=== PATIENT | male | born 1995 | race Hispanic/Latino ===

== ENCOUNTER 2019-07-16 08:33 | Emergency (ER) | payer OTHER, SELFPAY ==
[2019-07-16] MEDS ORDERED: Famotidine 20 MG TAB ONE (09:39)
[2019-07-16] MEDS ORDERED: Mag-Al 1200 mg/1200 mg/30 ML UDCUP ONE (09:39)
[2019-07-16] MEDS ORDERED: Ondansetron ODT 4 MG TAB ONE (09:39)
[2019-07-16] MEDS ORDERED: Lidocaine Viscous Sol 2% 15 ml UD Cup ONE (09:40)
== END 2019-07-16 09:56 | disposition home or self-care (01) ==
LOC: ERS 08:33
DX: K21.9 Gastro-esophageal reflux disease without esophagitis (principal); F17.210 Nicotine dependence, cigarettes, uncomplicated
CPT/HCPCS: 99283; Q0162

== ENCOUNTER 2020-03-03 07:23 | Emergency (ER) | payer SELFPAY ==
[2020-03-03] MEDS ORDERED: predniSONE 20 MG TAB ONE (07:56)
== END 2020-03-03 08:07 | disposition home or self-care (01) ==
LOC: ERS 07:23
DX: J02.0 Streptococcal pharyngitis (principal); Z87.891 Personal history of nicotine dependence
CPT/HCPCS: 99283; J7512

== ENCOUNTER 2020-03-04 08:43 | Emergency (ER) | payer SELFPAY ==
[2020-03-04 09:09] LABS: #Basophils 0.1 thou/uL (0.0-0.2); #Lymphocytes 2.8 thou/uL (1.20-3.40); #Monocytes 0.9 thou/uL (0.11-0.59); #Neutrophils 9.3 thou/uL (1.40-6.50); %Basophils 0.5 % (0.0-1.0); %Eosinophils 0.2 % (0.0-10.0); %Lymphocytes 21.2 % (21.0-51.0); %Monocytes 7.2 % (0.0-10.0); %Neutrophils 70.9 % (42.0-75.0); Hemoglobin 16.4 g/dL (14.0-18.0); Mean Corpuscular HGB CONC 33.8 g/dL (32.0-36.0); Mean Corpuscular Volume 88.8 fL (78.0-98.0); Mean Platelet Volume 8.9 fL (7.4-10.4); Platelet Count 265 thou/uL (130-400); RBC Distribution Width 11.8 % (11.5-14.5); Red Blood Cell (RBC) Count 5.46 mill/uL (4.70-6.10)
[2020-03-04] MEDS ORDERED: Ondansetron PF 4 MG/2 ML Vial ONE (09:16)
[2020-03-04 09:31] LABS: ALT (SGPT) 14 U/L (8-55); AST (SGOT) 14 U/L (5-34); Alkaline Phosphatase 116 U/L (40-110); Anion Gap 17 mmol/L (10-20); BUN (Urea Nitrogen) 16 mg/dL (8.9-20.6); Bilirubin, Total 1.4 mg/dL (0.2-1.2); Calc. Creatinine Clearance 0 mL/min (70-130); Calcium 9.7 mg/dL (7.8-10.44); Carbon Dioxide 22 mmol/L (22-29); Chloride 101 mmol/L (98-107); Estimated GFR-MDRD 87; Globulin 2.6 g/dL (2.4-3.5); Glucose 121 mg/dL (70-105); Protein, Total 7.6 g/dL (6.0-8.3); Sodium 137 mmol/L (136-145)
[2020-03-04] MEDS ORDERED: Potassium Chloride 20 MEQ TAB ONE (09:46)
== END 2020-03-04 10:02 | disposition home or self-care (01) ==
LOC: ERS 08:43
DX: F12.23 Cannabis dependence with withdrawal (principal); E87.6 Hypokalemia; R00.2 Palpitations; F17.210 Nicotine dependence, cigarettes, uncomplicated; F43.9 Reaction to severe stress, unspecified
CPT/HCPCS: 80053; 85025; 96361; 96374; J2405